=== PATIENT | male | born 1970 | race Asian ===

== ENCOUNTER 2018-01-29 15:24 | Emergency (ER) | payer OTHER, BC ==
[2018-01-29] MEDS: DEXAMETHASONE 10 MG/ML 1 ML INJ IM (19:25)
[2018-01-29] MEDS: KETOROLAC 60 MG INJ IM (19:26)
[2018-01-29] MEDS: LORAZEPAM 1 MG TAB PO (19:26)
[2018-01-29 19:41] LABS: ADD MAN DIFF? NO
[2018-01-29 19:44] LABS: BASOPHILS % 0.4 % (0.0-2.0); EOSINOPHILS # 0.1 10^3/ul (0.0-0.5); EOSINOPHILS % 1.9 % (0.0-7.0); HEMATOCRIT 43.8 % (42.0-52.0); HEMOGLOBIN 14.4 g/dl (14.0-18.0); LYMPHOCYTES # 2.3 10^3/ul (0.8-2.9); LYMPHOCYTES % 32.2 % (15.0-51.0); MEAN CORPUSCULAR HEMOGLOBIN 29.3 pg (29.0-33.0); MEAN CORPUSCULAR HGB CONC 32.9 g/dl (32.0-37.0); MEAN PLATELET VOLUME 9.3 fl (7.4-10.4); MONOCYTE # 0.5 10^3/ul (0.3-0.9); MONOCYTES % 6.9 % (0.0-11.0); NEUTROPHIL # 4.2 10^3/ul (1.6-7.5); NEUTROPHILS % 58.2 % (39.0-77.0); PLATELET COUNT 265 10^3/UL (140-415); RED BLOOD COUNT 4.92 10^6/ul (4.70-6.10); RED CELL DISTRIBUTION WIDTH 11.9 % (11.5-14.5)
[2018-01-29 19:44] LABS: WHITE BLOOD COUNT 7.3 10^3/ul (4.8-10.8)
[2018-01-29 20:06] LABS: ALANINE AMINOTRANSFERASE 65 IU/L (13-69); ALBUMIN 4.3 g/dl (3.3-4.9); ALKALINE PHOSPHATASE 84 IU/L (42-121); ANION GAP 15 (8-16); ASPARTATE AMINO TRANSFERASE 42 IU/L (15-46); BILIRUBIN,INDIRECT 0.4 mg/dl (0-1.1); BILIRUBIN,TOTAL 0.4 mg/dl (0.2-1.3); BLOOD UREA NITROGEN 15 mg/dl (7-20); CALCIUM 9.6 mg/dl (8.4-10.2); CARBON DIOXIDE 27 mmol/L (21-31); CHLORIDE 104 mmol/L (97-110); CREATININE 0.98 mg/dl (0.61-1.24); GLUCOSE 118 mg/dl (70-220); POTASSIUM 3.9 mmol/L (3.5-5.1); SODIUM 142 mmol/L (135-144); TOTAL PROTEIN 8.2 g/dl (6.1-8.1)
[2018-01-29] MEDS: HYDROCODONE/APAP (5/325) TAB PO (21:59)
== END 2018-01-29 22:20 | disposition home or self-care (01) ==
LOC: FTE 15:24
DX: M54.5 Low back pain (principal)
CPT/HCPCS: 72131; 74176; 80053; 85025; 96372; 99285-25